=== PATIENT | male | born 1965 | race Caucasian/White ===

== ENCOUNTER 2021-01-10 14:08 | Outpatient (CLI) | payer SELFPAY ==
--- NOTE | 2021-01-10 14:38 | XRR_ITS ---
PROCEDURE INFORMATION: Exam: XR Right Hip Exam date and time: 01/10/2021 2:38 PM Age: 55 years old Clinical indication: Hip pain; Right hip; Additional info: M54.5 - low back pain TECHNIQUE: Imaging protocol: XR Right hip. Views: 1 view hip with pelvis when performed. COMPARISON: No relevant prior studies available. FINDINGS: Bones/joints: Moderate degenerative narrowing of both hips. Bilateral aspherical morphology of the femoral head neck junction/CAM morphology. No evidence of fracture. Soft tissues: Unremarkable. XR/XR hip RT 2-3V wo/w pel* [id number] IMPRESSION: No acute findings.
--- NOTE | 2021-01-10 14:38 | XRR_ITS ---
PROCEDURE INFORMATION: Exam: XR Lumbosacral Spine Exam date and time: 01/10/2021 2:38 PM Age: 55 years old Clinical indication: Low back pain; Additional info: M54.5 - low back pain TECHNIQUE: Imaging protocol: XR of the lumbosacral spine. Views: 4 or 5 views. COMPARISON: No relevant prior studies available. FINDINGS: Bones/joints: Vertebral body heights are preserved. No acute fracture. No malalignment. Moderate multilevel endplate degenerative changes throughout the visualized thoracolumbar spine. Intervertebral disc height loss noted at L2-L3. Soft tissues: Unremarkable. XR/XR lumbar spine min 4V [id number] IMPRESSION: No acute findings.
== END 2021-01-10 14:09 | disposition home or self-care (01) ==
PROVIDERS: Visit Provider Family Medicine
DX: M54.5 Low back pain (principal)
CPT/HCPCS: 72110; 73502

== ENCOUNTER → 2021-04-26 10:47 | Outpatient (BNVA) | payer SELFPAY | PROVIDERS: PCP Family Medicine; Referring Provider Family Medicine; Visit Provider Anesthesiology Pain Medicine | DX: M47.816 Spondylosis without myelopathy or radiculopathy, lumbar region (principal); M51.16 Intervertebral disc disorders with radiculopathy, lumbar region; M48.062 Spinal stenosis, lumbar region with neurogenic claudication; M25.512 Pain in left shoulder; M25.551 Pain in right hip; M25.552 Pain in left hip; E66.01 Morbid (severe) obesity due to excess calories; Z68.44 Body mass index [BMI] 60.0-69.9, adult | CPT/HCPCS: 99203; 99204; 99205 ==

== ENCOUNTER → 2021-08-17 16:46 | Outpatient (BNVA) | payer SELFPAY | PROVIDERS: PCP Family Medicine; Visit Provider Family Medicine | DX: I10 Essential (primary) hypertension (principal); E11.9 Type 2 diabetes mellitus without complications; E66.01 Morbid (severe) obesity due to excess calories; Z68.44 Body mass index [BMI] 60.0-69.9, adult | CPT/HCPCS: 80053; 80061; 83036; 85025 ==

== ENCOUNTER → 2021-11-02 08:32 | Outpatient (BNVA) | payer SELFPAY | PROVIDERS: PCP Family Medicine; Visit Provider Dermatology | DX: Z01.89 Encounter for other specified special examinations (principal) ==

== ENCOUNTER → 2022-04-11 17:28 | Outpatient (BNVA) | payer OTHER, SELFPAY | PROVIDERS: PCP Family Medicine; Visit Provider Nurse Practitioner Family | DX: E11.9 Type 2 diabetes mellitus without complications (principal); M51.16 Intervertebral disc disorders with radiculopathy, lumbar region; J45.909 Unspecified asthma, uncomplicated; I10 Essential (primary) hypertension; E66.01 Morbid (severe) obesity due to excess calories; Z68.44 Body mass index [BMI] 60.0-69.9, adult | CPT/HCPCS: 80053; 80061; 83036; 84443 ==

== ENCOUNTER 2022-04-13 12:07 | Outpatient (CLI) | payer OTHER, SELFPAY ==
--- NOTE | 2022-04-13 12:25 | XRR_ITS ---
PROCEDURE INFORMATION: Exam: XR Bilateral Sacroiliac Joints Exam date and time: 04/13/2022 12:26 PM Age: 56 years old Clinical indication: Pain in coccyx area TECHNIQUE: Imaging protocol: XR Bilateral XR of the sacroiliac joints. Views: 3 or more views. COMPARISON: CR XR lumbar spine min 4V [id number] 01/10/2021 2:43 PM FINDINGS: Bones/joints: Vacuum phenomena is seen in the bilateral sacroiliac joints with sclerotic bone densities. This finding corresponds to osteoarthritis. No acute fracture. Soft tissues: Normal. XR/XR sacroiliac jts m 3V [id number] IMPRESSION: 1. Moderate osteoarthritis bilateral sacroiliac joints 2. Otherwise No acute findings.
--- NOTE | 2022-04-13 12:25 | XRR_ITS ---
PROCEDURE INFORMATION: Exam: XR Lumbosacral Spine Exam date and time: 04/13/2022 12:26 PM Age: 56 years old Clinical indication: Low back pain TECHNIQUE: Imaging protocol: Radiologic exam of the lumbosacral spine. Views: 2 or 3 views. COMPARISON: CR XR lumbar spine min 4V [id number] 01/10/2021 2:43 PM FINDINGS: Bones/joints: There is severe osteoarthritis seen with multilevel intervertebral disc space narrowing, bone spurs, and bone bridging. No acute fracture. Normal alignment. Soft tissues: Unremarkable. XR/XR lumbar spine 2-3V* [id number] IMPRESSION: 1. Negative for acute bony abnormality. 2. Severe osteoarthritis
== END 2022-04-13 12:08 | disposition home or self-care (01) ==
PROVIDERS: PCP Nurse Practitioner Family; Visit Provider Nurse Practitioner Family
DX: M47.896 Other spondylosis, lumbar region (principal); M47.898 Other spondylosis, sacral and sacrococcygeal region
CPT/HCPCS: 72100; 72202

== ENCOUNTER 2022-05-22 06:00 | Outpatient (RCR) | payer OTHER, SELFPAY | END 2022-06-21 23:59 | disposition home or self-care (01) | LOC: APT 06:00 | PROVIDERS: PCP Nurse Practitioner Family; Visit Provider Anesthesiology Pain Medicine | DX: M54.50 Low back pain, unspecified (principal); G89.29 Other chronic pain | CPT/HCPCS: 97110; 97163 ==

== ENCOUNTER 2022-06-30 12:36 | Emergency (ER) | payer OTHER, SELFPAY ==
[2022-06-30 13:06] VITALS: BP 143/83; PULSE 100; RESP 18; TEMP 36.7; O2SAT 97
--- NOTE | 2022-06-30 13:40 | XRR_ITS ---
PROCEDURE INFORMATION: Exam: XR Right Hip Exam date and time: 06/30/2022 2:17 PM Age: 56 years old Clinical indication: Injury or trauma; Fall; Blunt trauma (contusions or hematomas); Right; Hip; Patient HX: History--posterior pain, fell out of semi this morning; Additional info: Fall with right hip pain TECHNIQUE: Imaging protocol: Radiologic exam of the Right hip. Views: 1 view hip with pelvis when performed. COMPARISON: CR XR hip RT 2-3V wo/w pel* [id number] 01/10/2021 2:43 PM FINDINGS: Bones/joints: Mild-moderate degenerative changes right hip joint consisting of some joint space narrowing, subchondral sclerosis and marginal spurring. No fracture or malalignment. Soft tissues: Unremarkable. XR/XR hip RT 2-3V wo/w pel* [id number] IMPRESSION: Mild-moderate degenerative changes right hip joint. No acute bony abnormalities.
--- NOTE | 2022-06-30 13:40 | XRR_ITS ---
PROCEDURE INFORMATION: Exam: XR Right Knee Exam date and time: 06/30/2022 2:17 PM Age: 56 years old Clinical indication: Injury or trauma; Fall; Blunt trauma; Knee; Right; Injury details: History--posterior pain, fell out of semi this morning; Additional info: Fall with knee pain TECHNIQUE: Imaging protocol: Radiologic exam of the Right knee. Views: 3 views. COMPARISON: No relevant prior studies available. FINDINGS: Bones/joints: Osseous structures are intact. No fracture or malalignment. No advanced degenerative changes. Soft tissues: Unremarkable. XR/XR knee RT 3V* [id number] IMPRESSION: Negative exam. No acute bony abnormalities.
[2022-06-30 16:36] VITALS: BP 157/105; PULSE 101; RESP 16; O2SAT 97
--- NOTE | 2022-06-30 17:14 | XRR_ITS ---
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 Views: 2 or 3 views. COMPARISON: CR XR lumbar spine 2-3V* [id number] 04/13/2022 12:26 PM FINDINGS: Bones/joints: Lumbar curvature and alignment is unchanged unremarkable. There are advanced degenerative changes with prominent endplate osteophytes L2-L3, stable. The [id number] degenerative changes of the lower lumbar spine and facet joints are also unchanged. There are no acute fractures or spondylolisthesis. Pedicles are intact. Soft tissues: Unremarkable. XR/XR lumbar spine 2-3V* [id number] IMPRESSION: Stable examination. No acute bony abnormalities.
--- NOTE | 2022-06-30 17:14 | XRR_ITS ---
PROCEDURE INFORMATION: Exam: XR Sacrum and Coccyx, 2 or More Views Exam date and time: 06/30/2022 5:25 PM Age: 56 years old Clinical indication: Injury or trauma; Fall; Additional info: Fell out of semi truck TECHNIQUE: Imaging protocol: XR of the sacrum and coccyx, 2 or more views. COMPARISON: CR XR lumbar spine 2-3V* [id number] 04/13/2022 12:26 PM FINDINGS: Bones/joints: Normal. No acute fracture or deformity. Soft tissues: Normal. XR/XR sacrum coccyx min 2V [id number] IMPRESSION: No acute findings.
[2022-06-30] MEDS: HYDROcodone-acetaminophen 5-325 mg Tablet 2 TAB PO (17:24)
--- NOTE | 2022-06-30 17:47 | ED_ITS ---
Documented by User: Tavo Russo DO 07/13/22 08:19 HPI - Fall General: Chief Complaint: Fall Stated Complaint: fell out of a semi truck Time Seen by Provider: 06/30/22 16:09 Source: patient Mode of arrival: ambulatory History of Present Illness: 56-year-old male presents emergency room after falling out of a semitruck. He states that this morning when he was somewhere in [place] he slipped out of his semitruck fell backwards landed on his buttocks and then fell onto his back. He was able to get up get back into the truck and drive back to [place] after this he presents to the emergency room with severe back pain as well as hip and knee pain on the right. He did not strike his head and he did not lose consciousness. MD complaint: fall Onset (ago): hour(s) Fall from: other (While getting into a semitruck) Place fall occurred: home Loss of consciousness: None Prolonged down time: no Symptoms prior to fall: none Associated symptoms-after fall: Denies abdominal pain or chest pain Review of Systems Const: Denies: fever(s), chills, body aches, change in appetite, fatigue or malaise ENMT: Denies: throat pain, ear or mastoid pain, nasal discharge or nasal congestion Card: Denies: chest pain, edema, dyspnea on exertion or orthopnea Resp: Denies: dyspnea, productive cough or non-productive cough GI: Denies: abdominal pain, nausea, vomiting, hematemesis, coffee ground emesis, diarrhea, constipation, bloating, hematochezia or melena : Denies: flank pain, dysuria, urinary frequency or urinary urgency Musc: Reports: back pain Skin/Breast: Denies: rash or pruritus PFSH ED PFSH: Medical History Asthma Essential (primary) hypertension Morbid obesity with BMI of 60.0-69.9, adult Surgical History No history of previous surgery Family History Other Cancer Diabetes Hypertension Denies family history of Bleeding disorder Social History (Reviewed 07/13/22 @ 08:17 by DANIE Lee Smoking and tobacco status: never smoked Second hand smoke exposure: No Smoking risk assessment/counseling performed?: No Alcohol intake: never Desire information about alcohol rehabilitation?: No Counseling given: No Desire information about substance/drug rehabilitation?: No Counseling given: No Adopted: No Caregiver/support person: No Lives independently: Yes Household members: spouse Housing: House Marital status: Number of children: 2 service: No Current occupational status: employed Current occupation: Truck Drivers Current gender identity: Male Physical Exam Const: GENERAL APPEARANCE: cooperative and comfortable ORIENTATION/CONSCIOUSNESS: Yes awake, Yes oriented to person, Yes oriented to place and Yes oriented to time HENMT: COMMON NORMALS: normocephalic, atraumatic and hearing grossly normal bilaterally HEAD & SCALP: normocephalic and atraumatic Resp: COMMON NORMALS: normal respiratory effort, No retractions, No use of accessory muscles and clear to auscultation bilaterally AUSCULTATION: clear to auscultation bilaterally Cardio: COMMON NORMALS: regular rate, regular rhythm and No murmurs present (Cardio) RATE: regular rate RHYTHM: regular rhythm GI: COMMON NORMALS: Soft to palpation and No hepatosplenomegaly present AUSCULTATION: Yes normoactive bowel sounds PALPATION: Yes Soft to palpation, No Tenderness to palpation present (GI), No Guarding due to palpation present (GI) and Yes No hepatosplenomegaly present Extremity: COMMON NORMALS: normal to inspection, capillary refill normal, no clubbing, cyanosis or edema, no calf tenderness and no pedal edema Neuro: SENSORIUM/ORIENTATION: Yes oriented to person, Yes oriented to place and Yes oriented to time Skin: COMMON NORMALS: no rashes or lesions noted GENERAL SKIN EXAM: no rashes or lesions noted Course Vital Signs: Vital signs: Vital Signs Temperature 98.1 F 06/30/22 13:06 Pulse Rate 101 H 06/30/22 16:36 Respiratory Rate 16 06/30/22 16:36 Blood Pressure 157/105 06/30/22 16:36 Pulse Oximetry 97 06/30/22 16:36 Oxygen Delivery Me thod 06/30/22 16:36 MDM - Fall Medical Decision Making Care signed out to Dr. Castellanos at change of shift. See final notes for diagnosis and disposition. Patient presents here with knee pain follow-up pelvic pain fall his x-rays here are normal he has no signs of any major injuries he is stable for discharge to follow-up with PCP and return if worsening. Lab Data Radiology Impressions Hip/Pelvis X-Ray 06/30/22 13:40 IMPRESSION: Mild-moderate degenerative changes right hip joint. No acute bony abnormalities. Knee X-Ray 06/30/22 13:40 IMPRESSION: Negative exam. No acute bony abnormalities. Lumbar Spine X-Ray 06/30/22 17:14 IMPRESSION: Stable examination. No acute bony abnormalities. Sacrum and Coccyx X-Ray 06/30/22 17:14 IMPRESSION: No acute findings. Discharge Plan Discharge Patient Disposition: Home Clinical Impression: Fall, Contusion Condition: Stable Prescriptions: New Naprosyn 500 mg tablet 500 mg PO BID PRN (Reason: pain) Qty: 20 0RF No Action aspirin 81 mg tablet,delayed release (DR/EC) 81 mg PO QAM flaxseed oil 1,000 mg capsule 1,000 mg PO QAM Rx Instructions: administer with a meal phentermine [Adipex-P] 37.5 mg tablet 37.5 mg PO QAM Qty: 30 1RF Rx Instructions: must administer 30 minutes before or 1-2 hours after breakfast (DME) blood-glucose meter Kit See Rx Instructions .Route Qty: 1 0RF Rx Instructions: As directed (DME) Blood Glucose Test Strip See Rx Instructions .Route Qty: 50 5RF Rx Instructions: Test bid ac breakfast and 2 hr pp topiramate 100 mg tablet 100 mg PO BID Qty: 60 2RF celecoxib [Celebrex] 200 mg capsule 200 mg PO BID 30 Days Qty: 60 2RF finasteride 5 mg tablet 5 mg PO QAM Qty: 30 2RF Mounjaro 2.5 mg/0.5 mL pen injector 5 mg SUBCUT Q7D Qty: 2 1RF Rx Instructions: on monday Stool Softener 100 mg Capsule 200 mg PO QAM albuterol sulfate 90 mcg/actuation Hfa Aerosol Inhaler 2 puff INHALATION QID PRN (Reason: Shortness Of Breath) Zyrtec 10 mg tablet 10 mg PO DAILY PRN (Reason: Allergy Symptoms) furosemide 20 mg tablet 20 mg PO QAM Avapro 150 mg tablet 150 mg PO QAM metformin 500 mg tablet extended release 24 hr 500 mg PO DAILY PRN (Reason: blood sugar) Prilosec OTC 20 mg tablet,delayed release (DR/EC) 20 mg PO QAM tizanidine 4 mg capsule 4 mg PO TID Discharge Orders: Discharge ED (Routine); Ordered 06/30/22 Ordered By: Robby Castellanos Referrals: America Sparks NP [Primary Care Provider] - Discharge Diet: Advance as tolerated Discharge Activity: Resume usual activity Patient Instructions: Contusion in Adults (ED) Coding Level of Care Code ED [facility] Documented by User: Robby Castellanos MD 06/30/22 19:36 HPI - Fall General: Chief Complaint: Fall Stated Complaint: fell out of a semi truck Time Seen by Provider: 06/30/22 16:09 PFSH ED PFSH: Medical History Asthma Essential (primary) hypertension Morbid obesity with BMI of 60.0-69.9, adult Surgical History No history of previous surgery Family History Other Cancer Diabetes Hypertension Denies family history of Bleeding disorder Social History Smoking and tobacco status: never smoked Second hand smoke exposure: No Smoking risk assessment/counseling performed?: No Alcohol intake: never Desire information about alcohol rehabilitation?: No Counseling given: No Desire information about substance/drug rehabilitation?: No Counseling given: No Adopted: No Caregiver/support person: No Lives independently: Yes Household members: spouse Housing: House Marital status: Number of children: 2 service: No Current occupational status: employed Current occupation: Truck Drivers Current gender identity: Male Course Vital Signs: Vital signs: Vital Signs Temperature 98.1 F 06/30/22 13:06 Pulse Rate 101 H 02/09/23 16:36 Respiratory Rate 16 06/30/22 16:36 Blood Pressure 157/105 06/30/22 16:36 Pulse Oximetry 97 06/30/22 16:36 Oxygen Delivery Me thod 06/30/22 16:36 MDM - Fall Medical Decision Making Patient presents here with knee pain follow-up pelvic pain fall his x-rays here are normal he has no signs of any major injuries he is stable for discharge to follow-up with PCP and return if worsening. Lab Data Radiology Impressions Hip/Pelvis X-Ray 06/30/22 13:40 IMPRESSION: Mild-moderate degenerative changes right hip joint. No acute bony abnormalities. Knee X-Ray 06/30/22 13:40 IMPRESSION: Negative exam. No acute bony abnormalities. Lumbar Spine X-Ray 06/30/22 17:14 IMPRESSION: Stable examination. No acute bony abnormalities. Sacrum and Coccyx X-Ray 06/30/22 17:14 IMPRESSION: No acute findings. Discharge Plan Discharge Patient Disposition: Home Clinical Impression: Fall, Contusion Condition: Stable Prescriptions: New Naprosyn 500 mg tablet 500 mg PO BID PRN (Reason: pain) Qty: 20 0RF No Action aspirin 81 mg tablet,delayed release (DR/EC) 81 mg PO QAM flaxseed oil 1,000 mg capsule 1,000 mg PO QAM Rx Instructions: administer with a meal phentermine [Adipex-P] 37.5 mg tablet 37.5 mg PO QAM Qty: 30 1RF Rx Instructions: must administer 30 minutes before or 1-2 hours after breakfast [place] [place] blood-glucose [place] Kit See Rx Instructions .Route Qty: 1 0RF Rx Instructions: As directed (DME) Blood Glucose Test Strip See Rx Instructions .Route Qty: 50 5RF Rx Instructions: Test bid ac breakfast and 2 hr pp topiramate 100 mg tablet 100 mg PO BID Qty: 60 2RF celecoxib [Celebrex] 200 mg capsule 200 mg PO BID 30 Days Qty: 60 2RF finasteride 5 mg tablet 5 mg PO QAM Qty: 30 2RF Mounjaro 2.5 mg/0.5 mL pen injector 5 mg SUBCUT Q7D Qty: 2 1RF Rx Instructions: on monday Stool Softener 100 mg Capsule 200 mg PO QAM albuterol sulfate 90 mcg/actuation Hfa Aerosol Inhaler 2 puff INHALATION QID PRN (Reason: Shortness Of Breath) Zyrtec 10 mg tablet 10 mg PO DAILY PRN (Reason: Allergy Symptoms) furosemide 20 mg tablet 20 mg PO QAM Avapro 150 mg tablet 150 mg PO QAM metformin 500 mg tablet extended release 24 hr 500 mg PO DAILY PRN (Reason: blood sugar) Prilosec OTC 20 mg tablet,delayed release (DR/EC) 20 mg PO QAM tizanidine 4 mg capsule 4 mg PO TID Discharge Orders: Discharge ED (Routine); Ordered 06/30/22 Ordered By: Robby Castellanos Referrals: America Sparks NP [Primary Care Provider] - Discharge Diet: Advance as tolerated Discharge Activity: Resume usual activity Patient Instructions: Contusion in Adults (ED) Coding Level of Care Code ED [facility]
== END 2022-06-30 19:43 | disposition home or self-care (01) ==
PROVIDERS: Emergency Provider Emergency Medicine; PCP Nurse Practitioner Family
DX: T14.8XXA Other injury of unspecified body region, initial encounter (principal); W17.89XA Other fall from one level to another, initial encounter; I10 Essential (primary) hypertension; Z79.82 Long term (current) use of aspirin; Z79.84 Long term (current) use of oral hypoglycemic drugs
CPT/HCPCS: 72100; 72220; 73502; 73562; 99283

== ENCOUNTER 2022-08-25 14:58 | Outpatient (CLI) | payer OTHER, SELFPAY ==
--- NOTE | 2022-08-25 15:15 | USCV_ITS ---
Russ Villatoro Age: 57 Gender: M : 1965 Exam Date: 08/25/2022 15:21 Ordering Phys: America Sparks NP Technologist: PRETTY Exam Location: [facility] [place] Indication: Neck pain, headache Risk Factors: Previous Vascular Surgery: Right Brachial BP: / Left Brachial BP: / Right Left Velocity (cm/s) Spectral Plaque Velocity (cm/s) Spectral Plaque Syst/Diast Broadening Syst/Diast Broadening 95.90/ 23.20 Prox CCA 103.60/ 20.90 92.60/ 27.60 Mid CCA 86.60 / 23.20 106.90/26.50 Distal CCA 83.20 / 20.60 97.30/ 21.20 Prox ICA 52.80 / 23.00 52.30/ 17.40 Mid ICA 81.90 / 30.50 56.70/ 20.40 Distal ICA 77.20 / 27.10 111.50 ECA 107.60 0.91 ICA/CCA 0.79 Vertebral 71.80/ 19.70 cm/s 45.80/ 10.90 cm/s Subclavian 104.7 130.1 0 0 FINDINGS Comparison: none available. No significant elevation of systolic or diastolic velocities. Waveforms are normal. No significant amount of calcified plaque or intimal thickening identified. CONCLUSIONS Normal carotid doppler ultrasound. Dr. Berince Briggs DO (Electronically Signed) Final Date: 26 August 2022 07:23 S
== END 2022-08-25 14:59 | disposition home or self-care (01) ==
PROVIDERS: PCP Nurse Practitioner Family; Visit Provider Nurse Practitioner Family
DX: I65.29 Occlusion and stenosis of unspecified carotid artery (principal); R51.9 Headache, unspecified; M54.2 Cervicalgia
CPT/HCPCS: 93880

== ENCOUNTER → 2022-09-09 13:51 | Outpatient (BNVA) | payer OTHER, SELFPAY | PROVIDERS: PCP Nurse Practitioner Family; Visit Provider Nurse Practitioner Family | DX: E11.9 Type 2 diabetes mellitus without complications (principal); I10 Essential (primary) hypertension; Z68.43 Body mass index [BMI] 50.0-59.9, adult | CPT/HCPCS: 80053; 80061; 83036 ==

== ENCOUNTER 2022-11-09 20:00 | Outpatient (CLI) | payer OTHER, SELFPAY | END 2022-11-09 20:01 | disposition home or self-care (01) | LOC: SLEEP 11-10 05:51 | PROVIDERS: PCP Nurse Practitioner Family; Visit Provider Anesthesiology Pain Medicine | DX: G47.33 Obstructive sleep apnea (adult) (pediatric) (principal) | CPT/HCPCS: 95810 ==

== ENCOUNTER 2022-11-28 14:19 | Outpatient (CLI) | payer OTHER, SELFPAY ==
--- NOTE | 2022-11-28 14:27 | CT_ITS ---
WS: [id number] CT LUMBAR SPINE TECHNIQUE: Noncontrast CT of the lumbar spine with coronal and sagittal reformatted images. CLINICAL INFORMATION: VERTEBROGENIC LOW BACK PAIN COMPARISON: None. DLP: 2062.[address] scans at [facility] use at least one of these dose optimization techniques: automated e xposure control; mA and/or kV adjustment per patient size (includes targeted exams where dose is matc hed to clinical indication); or iterative reconstruction. FINDINGS: Mild lumbar curve. No acute compression. Anterior hypertrophic changes lumbar spine. Disc space narro wing with disc osteophyte complex at L2-L3 with osteophytic ridging. L1-L2: Mild annular bulging. Moderate facet arthropathy. Spinal canal and foramen are patent. L2-L3: Slight retrolisthesis. Disc osteophyte complex with endplate ridging. Moderate central canal s tenosis. Moderate facet arthropathy with ligamentum flavum hypertrophy. Moderate RIGHT and mild LEFT foraminal narrowing. Narrowing of the RIGHT subarticular recess. L3-L4: Mild disc bulging with osteophytic ridging. Moderate facet arthropathy. Moderate central canal stenosis and narrowing of the subarticular recess bilaterally. Moderate RIGHT and mild LEFT foramina l narrowing. L4-L5: Mild disc bulging and osteophytic ridging. Moderate central canal stenosis with impingement tr aversing L5 nerve roots bilaterally Advanced facet arthropathy. Moderate RIGHT and mild LEFT foraminal narrowing. L5-S1: Mild disc bulging with slight effacement of ventral thecal sac. Advanced facet arthropathy. Im pingement traversing LEFT greater than RIGHT S1 nerve roots. Foramen are patent. Visualized pelvic bony structures: Normal. Paravertebral soft tissues: Normal. Normal adrenal glands. CT/CT lumbar spine wo con* [id number] IMPRESSION: 1. Mild lumbar curve. Disc space narrowing worse at L2-L3 with vacuum disc phe nomenon. 2. Moderate central canal stenosis L2-L3 L3-L4 and L4-L5 with impingement suba rticular recess at these levels. 3. Mild central canal stenosis L5-S1 with impingement traversing LEFT greater than RIGHT S1 nerve roots. 4. Advanced facet arthropathy L3-L5. 5. Advanced facet arthropathy in the lower thoracic spine at T12-L1.
== END 2022-11-28 14:20 | disposition home or self-care (01) ==
PROVIDERS: PCP Nurse Practitioner Family; Visit Provider Anesthesiology Pain Medicine
DX: M48.061 Spinal stenosis, lumbar region without neurogenic claudication (principal); M47.816 Spondylosis without myelopathy or radiculopathy, lumbar region
CPT/HCPCS: 72131

== ENCOUNTER → 2023-01-02 17:19 | Outpatient (BNVA) | payer OTHER, SELFPAY | PROVIDERS: PCP Nurse Practitioner Family; Visit Provider Nurse Practitioner Family | DX: E11.9 Type 2 diabetes mellitus without complications (principal); Z68.42 Body mass index [BMI] 45.0-49.9, adult; I10 Essential (primary) hypertension; E66.01 Morbid (severe) obesity due to excess calories | CPT/HCPCS: 80053; 80061; 83036 ==

== ENCOUNTER → 2023-03-07 16:45 | Outpatient (BNVA) | payer OTHER, SELFPAY | PROVIDERS: PCP Nurse Practitioner Family; Visit Provider Nurse Practitioner Family | DX: Z68.42 Body mass index [BMI] 45.0-49.9, adult (principal); M53.86 Other specified dorsopathies, lumbar region; Z12.11 Encounter for screening for malignant neoplasm of colon; M51.16 Intervertebral disc disorders with radiculopathy, lumbar region; M79.601 Pain in right arm; M79.89 Other specified soft tissue disorders; K21.9 Gastro-esophageal reflux disease without esophagitis; I10 Essential (primary) hypertension; N40.0 Benign prostatic hyperplasia without lower urinary tract symptoms; E11.9 Type 2 diabetes mellitus without complications; E66.01 Morbid (severe) obesity due to excess calories | CPT/HCPCS: 80053; 80061; 83036 ==

== ENCOUNTER 2023-03-10 07:48 | Outpatient (CLI) | payer OTHER, SELFPAY ==
--- NOTE | 2023-03-10 07:45 | US_ITS ---
WS: [id number] ULTRASOUND SOFT TISSUES RIGHT upper extremity. HISTORY: right upper arm swelling, pain COMPARISON: None available. TECHNIQUE: 2-D and color Doppler imaging is submitted. Intermediate soft tissue mass centered in the medial RIGHT upper arm in the region of the biceps. Thi s is asymmetric to the LEFT upper extremity. There is not a lot of fluid but there is an abnormal con figuration of the muscle and soft tissue of the biceps. This is highly suspicious for biceps tendon r upture with retraction. IMPRESSION: Soft tissue mass centered in the RIGHT biceps is most consistent with a retracted ruptured biceps ten don. This can be further evaluated by MRI. MRI should include the elbow and the radial tuberosity.
== END 2023-03-10 07:49 | disposition home or self-care (01) ==
PROVIDERS: PCP Nurse Practitioner Family; Visit Provider Nurse Practitioner Family
DX: M79.601 Pain in right arm (principal); M79.89 Other specified soft tissue disorders; R22.31 Localized swelling, mass and lump, right upper limb
CPT/HCPCS: 76882

== ENCOUNTER → 2023-03-22 16:42 | Outpatient (BNVA) | payer OTHER, SELFPAY | PROVIDERS: PCP Nurse Practitioner Family; Referring Provider Nurse Practitioner Family; Visit Provider Nurse Practitioner | DX: M79.89 Other specified soft tissue disorders (principal); S46.211A Strain of muscle, fascia and tendon of other parts of biceps, right arm, initial encounter; X58.XXXA Exposure to other specified factors, initial encounter | CPT/HCPCS: 73080 ==

== ENCOUNTER → 2023-06-07 16:39 | Outpatient (BNVA) | payer OTHER, SELFPAY | PROVIDERS: PCP Nurse Practitioner Family; Visit Provider Nurse Practitioner Family | DX: K21.9 Gastro-esophageal reflux disease without esophagitis (principal); E11.9 Type 2 diabetes mellitus without complications; I10 Essential (primary) hypertension; J45.909 Unspecified asthma, uncomplicated; N52.9 Male erectile dysfunction, unspecified | CPT/HCPCS: 80053; 80061; 83036; 84402; 84403 ==

== ENCOUNTER → 2023-09-18 16:31 | Outpatient (BNVA) | payer OTHER, SELFPAY | PROVIDERS: PCP Nurse Practitioner Family; Visit Provider Nurse Practitioner Family | DX: I10 Essential (primary) hypertension (principal) | CPT/HCPCS: 80053; 80061; 83036; 84443; 85025 ==

== ENCOUNTER → 2024-01-10 12:06 | Outpatient (BNVA) | payer OTHER, SELFPAY | PROVIDERS: PCP Nurse Practitioner Family; Visit Provider Nurse Practitioner Family | DX: I10 Essential (primary) hypertension (principal); F33.0 Major depressive disorder, recurrent, mild; E66.01 Morbid (severe) obesity due to excess calories; Z68.44 Body mass index [BMI] 60.0-69.9, adult; E11.9 Type 2 diabetes mellitus without complications; Z68.43 Body mass index [BMI] 50.0-59.9, adult | CPT/HCPCS: 80053; 80061; 83036; 84443; 85025; 87491; 87591; 87661 ==

== ENCOUNTER → 2024-05-06 11:03 | Outpatient (BNVA) | payer OTHER, SELFPAY | PROVIDERS: PCP Nurse Practitioner Family; Visit Provider Specialist | DX: M79.89 Other specified soft tissue disorders (principal); S46.211A Strain of muscle, fascia and tendon of other parts of biceps, right arm, initial encounter; X50.9XXA Other and unspecified overexertion or strenuous movements or postures, initial encounter | CPT/HCPCS: 73080 ==

== ENCOUNTER 2024-12-31 12:05 | Outpatient (CLI) | payer OTHER, BC, MEDICAID, SELFPAY ==
--- NOTE | 2024-12-31 12:17 | XR_ITS ---
WS: [id number] AP view both hips, 12/31/2024 Clinical Data: LEFT GROIN PAIN Comparison: Pelvis and right hip, 06/30/2022 Findings: There is calcification adjacent to the acetabulum of the right hip. No narrowing, sclerosis or cyst formation of the right hip is seen. The left hip shows narrowing, adjacent acetabular calcification, cyst formation and loss of normal spherical outline of the femoral head. No fractures or dislocations are seen. The adjacent pelvis is unremarkable. The soft tissues are normal. XR/XR hip BI 2V wo/w pel [id number] Impression: Degenerative changes of both hips, left worse than right.
== END 2024-12-31 12:06 | disposition home or self-care (01) ==
LOC: RAD 12:12
PROVIDERS: PCP Nurse Practitioner Family; Visit Provider Internal Medicine
DX: R10.32 Left lower quadrant pain (principal); M16.0 Bilateral primary osteoarthritis of hip
CPT/HCPCS: 73521

== ENCOUNTER → 2025-01-13 14:04 | Outpatient (BNVA) | payer OTHER, SELFPAY | PROVIDERS: PCP Nurse Practitioner Family; Visit Provider Specialist | DX: M16.0 Bilateral primary osteoarthritis of hip (principal); M25.473 Effusion, unspecified ankle | CPT/HCPCS: 73523 ==

== ENCOUNTER 2025-01-29 10:16 | Outpatient (CLI) | payer OTHER, SELFPAY ==
--- NOTE | 2025-01-29 10:30 | USR_ITS ---
PROCEDURE INFORMATION: Exam: US Bilateral Noninvasive Physiologic Study of the Lower Extremity Arteries, Limited Exam date and time: 01/29/2025 10:19 AM Age: 59 years old Clinical indication: Pain; Leg, lower; Bilateral; Additional info: Rule out TECHNIQUE: Imaging protocol: Bilateral Limited bilateral noninvasive physiologic studies of lower extremity arteries. Waveforms were obtained and evaluated. Images were documented and archived. Exam is limited. COMPARISON: US soft tissue/extremity [id number] 03/10/2023 8:02 AM FINDINGS: Right Ankle-Brachial Index: 0.9. Left Ankle-Brachial Index: 1.0. US/CV ankle brachial index [id number] IMPRESSION: No evidence of stenosis or occlusion in the lower extremity.
== END 2025-01-29 10:17 | disposition home or self-care (01) ==
LOC: RAD 10:21
PROVIDERS: PCP Internal Medicine; Visit Provider Specialist
DX: M25.473 Effusion, unspecified ankle (principal)
CPT/HCPCS: 93922